=== PATIENT | male | born 1935 | race Caucasian/White ===

== ENCOUNTER 2021-08-05 08:09 | Outpatient (CLI) | payer MEDICARE, SELFPAY ==
--- NOTE | ~2021-08-05 | CT_ITS ---
EXAMINATION: CT abdomen pelvis wo/w con DATE: 08/05/2021 09:01 INDICATION: Hydronephrosis TECHNIQUE: Computed tomography (CT) of the abdomen and pelvis was performed without intravenous contr ast. CT of the abdomen and pelvis was then performed with a total of 130 mL Omnipaque 300 intravenous contrast using a double-bolus technique for simultaneous opacification of the renal parenchyma and r enal collecting system. The dose-length product (DLP) was 952.99 mGy-cm. Automated exposure control a nd iterative reconstruction technique were employed. COMPARISON: None FINDINGS: Minimal dependent atelectasis is present in the lung bases. The heart size is normal. There is a 4 mm cyst of the right hepatic lobe. The spleen, pancreas, gallbladder, and adrenal glands are normal. There is a 3 mm stone at the left ureterovesicular junction. There is moderate left hydrouret eronephrosis with no visible excretion of contrast into the collecting system on post contrast images . There is a delayed left nephrogram. There is mild periportal lymphadenopathy. There is no free intr aperitoneal gas or evidence of bowel obstruction. The appendix is normal. There is mild lumbar spondy losis. IMPRESSION: 1. Moderate left hydroureteronephrosis with 3 mm stone at the left ureterovesicular junction. Delayed left nephrogram with no visible excretion of contrast is seen into the left collecting system. 2. Mild periportal lymphadenopathy, likely reactive. Reviewed, dictated and finalized at location A. IMPRESSION: 1. Moderate left hydroureteronephrosis with 3 mm stone at the left ureterovesic ular junction. Delayed left nephrogram with no visible excretion of contrast is seen into the left collecting system. 2. Mild periportal lymphadenopathy, likely reactive.
[2021-08-05 08:41] LABS: Estimated Glomerular Filt Rate 58
== END 2021-08-05 08:10 | disposition home or self-care (01) ==
LOC: ANHIMG 08:20
PROVIDERS: Visit Provider Urology
DX: N13.30 Unspecified hydronephrosis (principal)
CPT/HCPCS: 74178; Q9967

== ENCOUNTER 2021-10-01 10:45 | Outpatient (CLI) | payer MEDICARE, SELFPAY ==
--- NOTE | ~2021-10-01 | XR_ITS ---
XR abdomen/kub 1V 10/01/2021 11:15 Indication: Left ureteral stone Procedure: KUB Comparison: CT dated 10/01/2021. 08/05/2021 Findings: Bowel gas pattern is nonobstructive. Moderate colonic fecal loading. Moderate lumbar spondy losis. Moderate osteoarthritis of the hips. Lung bases are unremarkable. There is a punctate calcific ation overlying the sacrum, suspicious for distal ureteral stone. Impression: 1: Possible distal left ureteral stone at the sacral level. 2: Nonobstructive bowel gas pattern. Reviewed, dictated and finalized at location B. Impression: 1: Possible distal left ureteral stone at the sacral level. 2: Nonobstructive bowel gas pattern.
--- NOTE | ~2021-10-01 | CT_ITS ---
EXAMINATION: CT abdomen pelvis wo con DATE: 10/01/2021 11:10 INDICATION: Left ureteral stone TECHNIQUE: Computed tomography (CT) of the abdomen and pelvis was performed without intravenous contr ast. The dose-length product (DLP) was 185.00 mGy-cm. Automated exposure control and iterative recons truction technique were employed. COMPARISON: 08/05/2021 FINDINGS: The lung bases are clear. The heart size is normal. The liver, spleen, pancreas, gallbladde r, and adrenal glands are normal. Again seen is a 3 mm stone at the left ureterovesicular junction wi th unchanged moderate left hydroureteronephrosis. The right kidney is unremarkable. There is stable m ild periportal lymphadenopathy. There is no free intraperitoneal gas or evidence of bowel obstruction . There is mild lumbar spondylosis. The appendix is normal. IMPRESSION: 1. 3 mm stone at the left ureterovesicular junction with unchanged moderate left hydroureteronephrosi s. 2. Stable mild periportal lymphadenopathy, likely reactive. Reviewed, dictated and finalized at location A. IMPRESSION: 1. 3 mm stone at the left ureterovesicular junction with unchanged moderate lef t hydroureteronephrosis. 2. Stable mild periportal lymphadenopathy, likely reactive.
== END 2021-10-01 10:46 | disposition home or self-care (01) ==
PROVIDERS: Visit Provider Urology
DX: N20.1 Calculus of ureter (principal)
CPT/HCPCS: 74018; 74176

== ENCOUNTER 2021-10-03 01:12 | Day surgery (SDC) | payer MEDICARE, SELFPAY ==
[2021-10-02 11:24] VITALS: BMI 23.6
--- NOTE | 2021-10-02 11:35 | PC.NURSE ---
Report to the Outpatient Waiting Room, entrance under the green pavilion located off [facility], at time 0930 on date 10/03/21. OR Time: 1130. - You and your visitor will be asked to self-screen and do not enter if you have any COVID symptoms. - Only one visitor and NO children visitors are allowed at this time. - The patient visitor is requested to leave or wait in car when not with patient due to restrictions. - A mask is required within the hospital. Patients may have clear liquids (water, carbonated beverages, clear teas, apple juice) until 3 hours prior to surgery with a maximum of 20 ounces. - No food from midnight until time of surgery Take the following medications with a SIP of water the morning of surgery: AMLODIPINE, ANTIBIOTIC Medications to discontinue per physician: N/A (AM MEDS ALREADY TAKEN) Date to take last dose: N/A Please no make-up, nail fijian, hairspray, perfume, deodorant, or body powder the day of surgery. No jewelry (including any body piercings) or valuables the day of surgery, leave them at home. Please take a shower or bath the night before, or the morning of, surgery with an antibacterial soap. Wear comfortable, loose fitting clothing. - Jewelry must be removed prior to entering the operating room. Rings and piercings that are not removed may be cut off. - The hospital will not accept responsibility for valuables. - Please leave all valuables, including medications, at home the day of surgery. If you are going home after surgery, a licensed front load trash truck driver must drive you home. - NO public transportation without another adult. - We recommend that an adult stay with you for 24 hours following discharge. - We also recommend that you do not drive, make important decision, drink alcoholic beverages, or take any drugs that were not prescribed by your health care provider for at least 24 hours after your discharge time. Follow any additional instructions given to you from your surgeon. If you or anyone in your household have experienced Covid symptoms in the past week, please notify your surgeon or the nurse liaison at the phone number below for possible testing. Telephone instructions given to PT - DENG NICHOLS and asked if any additional questions and then verbalized understanding. Patient advised to call surgeon office or pre surgery nurse liaison [phone] if any additional questions.
--- NOTE | 2021-10-02 14:10 | P.PNAN_ITS ---
Anes - Initial Pre Proc Eval Procedure: Operation Date: 10/03/21 14:00 Proposed Procedures p Cystoscopy, Left Ureteroscopy, Left Retrograde Pyelogram, Left Stone Extraction, Possible Left Stent Placement, Possible Holmium Laser - Epifanio Ortega MD Date/Time: 10/02/21 14:10 Surgeon: Epifanio Ortega MD Pre Op Diagnosis: left ureteral kidney stone Patient Data Age: 86 Gender: M Height: 1.75 m Weight: 72.6 kg Allergies Allergy/AdvReac Type Severity Reaction Status Date / Time No Known Allergies Allergy Verified 10/03/21 12:26 Home Medications Medication Instructions Recorded Confirmed Type amlodipine 5 mg tablet 5 mg PO DAILY 10/02/21 10/03/21 History aspirin 81 mg chewable tablet 81 mg PO DAILY 10/02/21 10/03/21 History losartan 100 1 tablet PO DAILY 10/02/21 10/03/21 History mg-hydrochlorothiazide 12.5 mg tablet niacin 500 mg tablet 500 mg PO BID 10/02/21 10/03/21 History nitrofurantoin 1 cap PO BID 10/02/21 10/03/21 History monohydrate/macrocrystals 100 mg capsule rosuvastatin 10 mg tablet (Crestor) 10 mg PO HS 10/02/21 10/03/21 History Patient hx anesthesia problems: none Family hx anesthesia problems: none Results Review: All pre-operative results and documents have been reviewed as part of the pre- operative evaluation. [facility] Past Medical History Medical History (Updated 10/02/21 @ 14:11 by Wilfredo Blandon DO) Hyperlipidemia Hypertension Surgical History Surgical History (Updated 10/02/21 @ 14:11 by Wilfredo Blandon DO) History of prostatectomy Social History Social History Smoking status: Former smoker Tobacco type: cigarettes Additional smoking assessment comments: QUIT OVER 50 YEARS AGO Alcohol intake: never Substance use: never Substance use type: does not use Living arrangements: with family Spiritual care concerns: No Anes - Eval Final PreProcedure Day of Procedure 10/02/21 14:10 Patient weight: overweight Heart: regular rate and rhythm Lungs: clear to auscultation Airway: Mallampati scale class II Neurological: alert and oriented Last oral intake: >/= 8 hours ASA classification: II Emergent: no Anesthetic plan: proceed Anesthesia type and monitoring: general LMA and standard monitoring Results Review: All pre-operative results and documents have been reviewed as part of the pre- operative evaluation. Informed Consent: The patient's anesthetic plan and its attendant risks and benefits were discussed with the patient/family/POA. Questions were solicited and answers provided to the satisfaction of the patient/family/POA.
[2021-10-03] VITALS (8 sets, daily range): BP systolic 102–152; BP diastolic 52–93; PULSE 73–95; RESP 11–20; TEMP 36.4–36.8; O2SAT 98–100
--- NOTE | ~2021-10-03 | XR_ITS ---
XR fluoroscopy no charge 10/03/2021 15:16 Indication: Urethral dilation TECHNIQUE: Fluoroscopy used during cystoscopy and urethral dilation performed by [Epifanio benito MD] on 10/03/2021. 0.7 seconds of fluoroscopy. with one fluoroscopic images captured. FINDINGS: Correlate with procedure note. IMPRESSION: Fluoroscopy used during urethral dilation. Reviewed, dictated and finalized at location B.
--- NOTE | 2021-10-03 08:49 | ECG_ITS ---
Measurements Intervals [place] Rate: 78 P: 14 DC: 193 QRS: -3 QRSD: 90 T: 16 QT: 374 QTc: 427 Interpretive Statements SINUS RHYTHM NONSPECIFIC ST & T-WAVE ABNORMALITY NO PREVIOUS ECG AVAILABLE FOR COMPARISON Electronically Signed On 10-04-2021 13:20:11 CDT by Archana Trammell M.D.
--- NOTE | 2021-10-03 11:50 | WPDHPUPDATE1 ---
History and Physical Update Update Date/Time: 10/03/21 11:50 History and Physical has been reviewed, including an updated exam of the patient. There are NO changes in the patient's condition. Risks, benefits, and alternatives have been discussed and questions answered. Patient agrees to proceed with procedure. Proceed with cystoscopy, left retrograde pyelogram, left ureteroscopy with stone extraction, possible laser, stent placement
[2021-10-03] MEDS: LACTATED RINGERS 1,000 ML 30 ML IV CONT (12:37)
--- NOTE | 2021-10-03 12:39 | WPDANESEPPF ---
Anes - Initial Pre Proc Eval Procedure: Operation Date: 10/03/21 14:00 Proposed Procedures p Cystoscopy, Left Ureteroscopy, Left Retrograde Pyelogram, Left Stone Extraction, Possible Left Stent Placement, Possible Holmium Laser - Epifanio Ortega MD Date/Time: 10/03/21 12:39 Surgeon: Epifanio Ortega MD Pre Op Diagnosis: left ureteral kidney stone Patient Data Age: 86 Gender: M Height: 1.75 m Weight: 71.05 kg Last Vital Signs Temp 97.5 F L 10/03/21 11:59 Pulse 79 10/03/21 11:59 Resp 16 10/03/21 11:59 BP 149/77 H 10/03/21 11:59 Pulse Ox 100 10/03/21 11:59 O2 Del Method Room Air 10/03/21 11:59 Allergies Allergy/AdvReac Type Severity Reaction Status Date / Time No Known Allergies Allergy Verified 10/03/21 12:26 Home Medications Medication Instructions Recorded Confirmed Type amlodipine 5 mg tablet 5 mg PO DAILY 10/02/21 10/03/21 History aspirin 81 mg chewable tablet 81 mg PO DAILY 10/02/21 10/03/21 History losartan 100 1 tablet PO DAILY 10/02/21 10/03/21 History mg-hydrochlorothiazide 12.5 mg tablet niacin 500 mg tablet 500 mg PO BID 10/02/21 10/03/21 History nitrofurantoin 1 cap PO BID 10/02/21 10/03/21 History monohydrate/macrocrystals 100 mg capsule rosuvastatin 10 mg tablet (Crestor) 10 mg PO HS 10/02/21 10/03/21 History Laboratory Tests 10/03/21 12:14 Sodium Pending Potassium Pending Chloride Pending Carbon Dioxide Pending Anion Gap Pending BUN Pending Creatinine Pending Estim Creat Clear Calc Pending Estimated GFR Pending Glucose Pending Calcium Pending Patient hx anesthesia problems: none Family hx anesthesia problems: none Results Review: All pre-operative results and documents have been reviewed as part of the pre-operative evaluation. [facility], [facility] Past Medical History Medical History (Updated 10/02/21 @ 14:11 by Wilfredo Blandon DO) Hyperlipidemia Hypertension Surgical History Surgical History (Updated 10/02/21 @ 14:11 by Wilfredo Blandon DO) History of prostatectomy Social History Social History Smoking status: Former smoker Tobacco type: cigarettes Additional smoking assessment comments: QUIT OVER 50 YEARS AGO Alcohol intake: never Substance use: never Substance use type: does not use Living arrangements: with family Spiritual care concerns: No Anes - Eval Final PreProcedure Day of Procedure 10/03/21 12:39 Patient weight: normal Heart: regular rate and rhythm Lungs: clear to auscultation Neurological: alert and oriented Last oral intake: >/= 8 hours ASA classification: III Emergent: no Anesthetic plan: proceed Anesthesia type and monitoring: general LMA and standard monitoring Results Review: All pre-operative results and documents have been reviewed as part of the pre-operative evaluation. Informed Consent: The patient's anesthetic plan and its attendant risks and benefits were discussed with the patient/family/POA. Questions were solicited and answers provided to the satisfaction of the patient/family/POA.
[2021-10-03 12:51] LABS: Anion Gap 11 mmol/L (8-16); Blood Urea Nitrogen 18 mg/dL (9-20); Calcium 10.6 mg/dL (8.4-10.2); Carbon Dioxide 24 mmol/L (22-30); Chloride 102 mmol/L (98-107); Estimated CRCL calculation 48 ml/min; Estimated Glomerular Filt Rate > 60; Glucose 95 mg/dL (65-110); Potassium 3.7 mmol/L (3.4-5.0); Sodium 137 mmol/L (137-145)
[2021-10-03] MEDS: ceFAZolin 2 GM/D5W 50 ML 2 GM/50 ML BAG IVPB (13:10)
--- NOTE | 2021-10-03 13:28 | SUR.OPER ---
PRE OP NOTED RIGHT ARM < STRENGTH THAN RIGHT/HX OF STROKE. CLEAR SPEECH.
[2021-10-03] MEDS: LIDOCAINE HCL 2% GEL UROJET 10 ML PKG MUCOUS MEM (13:31)
--- NOTE | 2021-10-03 13:41 | W.PM.PROC2 ---
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 Complete obliteration of left ureteral orifice. Description of Procedure Patient is taken to the operative suite correctly identified. Once anesthesia was obtained was placed in dorsal lithotomy position prepped draped usual sterile fashion. Twenty-two Montserratian scope inserted into the urethra but I could not pass this into bladder due to fixed bladder neck in a bladder neck contracture. He has had a prior prostatectomy with an absent prostate. We thus used a 19 Montserratian scope and even this needed some passive dilatation to dilate the bladder neck contracture. Upon entering the bladder there was no tumors noted at this time. The right ureteral orifice visualized effluxing clear urine. The location of the left ureteral orifice was never identified. He has a history of resection of that orifice in the past with prior left percutaneous nephrostomy tube as well as stent. At this point since the patient had been on Plavix and only stopped it yesterday the procedure was terminated. 2% viscous lidocaine was inserted urethra is 16 Montserratian coude was placed. Will plan on removing that Elizondo on Wednesday. Will need to discuss how aggressive he wants to pursue with left percutaneous nephrostomy tube placement an anterograde studies with possible resection of left lorrie trigone. If that is unsuccessful then he would require a reimplant if he wish to pursue that. He is currently asymptomatic and may simply choose to not pursue any treatment at all understanding that the kidney may atrophy. Drains Yes Packing No Pathology None sent Complications No immediate complications Condition Stable Disposition PACU
== END 2021-10-03 15:49 | disposition home or self-care (01) ==
PROVIDERS: Anesthesiology; Visit Provider Urology
PROC: (CPT 52352; principal; 2021-10-03 14:00)
DX: N13.2 Hydronephrosis with renal and ureteral calculous obstruction (principal); N32.0 Bladder-neck obstruction; N28.89 Other specified disorders of kidney and ureter; I10 Essential (primary) hypertension; E78.5 Hyperlipidemia, unspecified; Z79.82 Long term (current) use of aspirin; Z87.891 Personal history of nicotine dependence; Z90.79 Acquired absence of other genital organ(s)
CPT/HCPCS: 52281; 36415; 80048; 93005; 99199; A9270; C1769; J0690; J1100; J2405; J2704; J3010; J7120; Q9966

== ENCOUNTER 2022-05-15 15:49 | Outpatient (CLI) | payer MEDICARE, SELFPAY ==
--- NOTE | ~2022-05-15 | CT_ITS ---
EXAMINATION: CT abdomen pelvis wo con DATE: 05/15/2022 16:16 INDICATION: Left flank pain TECHNIQUE: Computed tomography (CT) of the abdomen and pelvis was performed without intravenous contr ast. The dose-length product (DLP) was 192.30 mGy-cm. Automated exposure control and iterative recons truction technique were employed. COMPARISON: 10/01/2021 FINDINGS: Minimal dependent atelectasis is present in the lung bases. The heart size is normal. The l iver, spleen, pancreas, gallbladder, and adrenal glands are normal. The right kidney is unremarkable. There is chronic moderate left hydroureteronephrosis continuing to the ureterovesicular junction. Th ere is a chronic 2 to 3 mm calcification projecting near the left ureterovesicular junction. No patho logically enlarged abdominal or pelvic lymph nodes are identified. No free intraperitoneal gas or celia dence of bowel obstruction. The appendix is normal. A moderate volume of colonic stool is present. Th ere is mild lumbar spondylosis. IMPRESSION: 1. Chronic moderate left hydroureteronephrosis continuing to the left ureterovesicular junction where there is a chronic 2 to 3 mm calcification. Reviewed, dictated and finalized at location F. IMPRESSION: 1. Chronic moderate left hydroureteronephrosis continuing to the left ureterove sicular junction where there is a chronic 2 to 3 mm calcification.
--- NOTE | ~2022-05-15 | XR_ITS ---
EXAMINATION: XR abdomen/kub 1V INDICATION: Left ureteral stone TECHNIQUE: Supine views of the abdomen were obtained on 2 radiographs. COMPARISON: 10/01/2021 FINDINGS: Phleboliths are noted in the pelvis. Subtle left distal ureteral calcification described on CT is not identified. A moderate volume of colonic stool is present. There are surgical clips in the left pelvis. Lung bases are clear. There is moderate osteoarthritis of the hips. IMPRESSION: 1. No definite urolithiasis identified Reviewed, dictated and finalized at location F.
== END 2022-05-15 15:50 | disposition home or self-care (01) ==
PROVIDERS: Visit Provider Urology
DX: N20.1 Calculus of ureter (principal); N13.30 Unspecified hydronephrosis
CPT/HCPCS: 74018; 74176